=== PATIENT | male | born 1940 | race Caucasian/White ===

== ENCOUNTER 2018-05-22 13:40 | Inpatient (IN) | payer OTHER ==
[~2018-05-22] VITALS: Ht 167.6 cm; Wt 75.7 kg
[2018-05-22 13:41] VITALS: Ht 167.6 cm; Wt 75.7 kg
[2018-05-22 15:03] LABS: BASOPHIL % 0.2 % (0-2); PLATELET COUNT 178 x10^3mcL (130-400); RED CELL DISTRIBUTION WIDTH 13.9 % (11.5-14.5)
[2018-05-22] MEDS ORDERED: METFORMIN HYDR500 M1 (15:14)
[2018-05-22] MEDS ORDERED: PIOGLITAZONE HC30 MG (15:15)
[2018-05-22] MEDS ORDERED: GLIMEPIRIDE2 M1 (15:15)
[2018-05-22] MEDS ORDERED: COUMADIN2.5 MG (15:15)
[2018-05-22] MEDS ORDERED: BENAZEPRIL HYDR20 M1 (15:15)
[2018-05-22 15:16] LABS: CALCIUM 9.2 mg/dL (8.5-10.1); CARBON DIOXIDE 27.9 mmol/L (21-32); CHLORIDE SERUM 102 mmol/L (98-107); CREATININE SERUM 1.2 mg/dL (0.7-1.3); GLUCOSE SERUM 163 mg/dL (74-106); POTASSIUM SERUM 4.5 mmol/L (3.5-5.1); SODIUM SERUM 139 mmol/L (136-145)
[2018-05-22] MEDS ORDERED: MASON NATURAL500 M1 (15:16)
[2018-05-22] MEDS ORDERED: PRAVASTATIN SOD20 M1 (15:16)
[2018-05-22] MEDS ORDERED: EPZICOM1 TAB (15:16)
[2018-05-22] MEDS ORDERED: MASON NATURAL1000 IU (15:16)
[2018-05-22 15:29] LABS: ALBUMIN 3.9 g/dL (3.4-5.0); ALKALINE PHOSPHATASE 67 U/L (46-116); ALT/SGPT 28 U/L (16-63); AST/SGOT 16 U/L (15-37); BILIRUBIN TOTAL 0.43 mg/dL (0.20-1.00); FREE T4 1.04 ng/dL (0.76-1.46)
[2018-05-22 16:09] LABS: UA SPECIFIC GRAVITY 1.015 (1.005-1.035); microscopic required? YES; urine erythrocyte TRACE (NEGATIVE)
[2018-05-22 16:25] LABS: AMPHETAMINE QUAL UR NONE DETECTED (See below)
[2018-05-23 00:31] LABS: CHOLESTEROL/HDL RATIO 4.1; MAGNESIUM 2.2 mg/dL (1.8-2.4); PHOSPHOROUS 3.6 mg/dL (2.5-4.9)
[2018-05-23 01:47] VITALS: BP 146/61
[2018-05-23 05:36] VITALS: BP 138/90
[2018-05-23 05:43] VITALS: BP 138/72
[2018-05-23 06:21] LABS: CARBON DIOXIDE 30.4 mmol/L (21-32); CHLORIDE SERUM 102 mmol/L (98-107); CREATININE SERUM 0.9 mg/dL (0.7-1.3); GLUCOSE SERUM 86 mg/dL (74-106); POTASSIUM SERUM 4.3 mmol/L (3.5-5.1); SODIUM SERUM 140 mmol/L (136-145)
[2018-05-23 07:52] LABS: BASOPHIL % 0.3 % (0-2); PLATELET COUNT 173 x10^3mcL (130-400); RED CELL DISTRIBUTION WIDTH 13.5 % (11.5-14.5)
[2018-05-23 08:49] VITALS: BP 132/54
[2018-05-23 09:00] VITALS: BP 152/63
[2018-05-23 13:05] VITALS: BP 147/59
== END 2018-05-23 14:56 | disposition home or self-care (01) | DRG 70 ==
LOC: ED 13:40 → DU 23:37
PROVIDERS: Emergency Medicine; ADMIT General Practice
DX: G93.41 Metabolic encephalopathy (principal); N17.0 Acute kidney failure with tubular necrosis; E11.65 Type 2 diabetes mellitus with hyperglycemia; I69.398 Other sequelae of cerebral infarction; G93.89 Other specified disorders of brain; E11.41 Type 2 diabetes mellitus with diabetic mononeuropathy; H49.01 Third [oculomotor] nerve palsy, right eye; Q13.2 Other congenital malformations of iris; I48.91 Unspecified atrial fibrillation; E78.5 Hyperlipidemia, unspecified; Z68.26 Body mass index [BMI] 26.0-26.9, adult; Z79.01 Long term (current) use of anticoagulants; Z79.84 Long term (current) use of oral hypoglycemic drugs; Z86.73 Personal history of transient ischemic attack (TIA), and cerebral infarction without residual deficits
CPT/HCPCS: 82962; 83880; 84439; G0480; Q9967